=== PATIENT | male | born 1970 | race Caucasian/White ===

== ENCOUNTER 2016-12-17 15:38 | Inpatient (IN) | payer BC ==
--- NOTE | ~2016-12-17 | HP ---
Unit #: [id number] #: [id number] Patient: ANNE VIZCARRA [id number] [place] [address] [id number] MR#: [id number] NAME: ANNE VIZCARRA ROOM: 13 Age: 46 Sex: M Admission Date: 12/17/2016 : 1970 Attending Physician: Alfred Hargrove M.D. Admitting Physician: Alfred Hargrove M.D. Primary Care Physician: Primary Care Physician No HISTORY AND PHYSICAL Anne is a 46 year old who was admitted and discharged within the first 24 hours. He was not seen for an H and P. Dictated by... Mary Lou Lopez P.A.-C. for Shahla Acosta/wendy TD: 12/18/2016 21:03 JOB #: [id number] HISTORY AND PHYSICAL Page 1 of 1 X Mary Lou Lopez X HISTORY AND PHYSICAL
--- NOTE | ~2016-12-17 | PA ---
Unit #: [id number] #: [id number] Patient: ANNE VIZCARRA [id number] [place] [address] [id number] MR#: [id number] NAME: ANNE VIZCARRA ROOM: P113 Age: 46 Sex: M Admission Date: 12/17/2016 : 1970 Date of Assessment: 12/18/2016 Attending Physician: Alfred Hargrove M.D. Admitting Physician: Alfred Hargrove M.D. Primary Care Physician: Primary Care Physician No PSYCHIATRIC ASSESSMENT DATE OF SERVICE 12/18/2016. LOCATION Our [address], room [address]130, bed #1. INFORMANTS The patient and chart seem as they both seem reliable. CHIEF COMPLAINT "I'm not sure why I'm here." HISTORY OF PRESENT ILLNESS This is a 46-year-old white male, who was admitted to the admission center here for issues with depression and suicidal thoughts. On admission, the patient was somewhat irritable and reports he has had longstanding issues with depression both proceeding and after the of his 2 years ago. Apparently, he was in counseling for some period of time as well as but was never compliant with care. The patient came in yesterday reportedly trying to find "quicker way to therapy" and had talked about having chronic on and off suicidal ideation, but denied ever actually having it then or having any plan. The patient "feels that he was lied to" by the admissions personnel. The patient and I discussed possibility of medications and aftercare which he was interested, but then decided he wanted to leave and while the patient would benefit from being it is kept in the hospital for further care, he technically does not meet the criteria for involuntary hold as he is not actually suicidal, has support through his family his sons in particular and his job. The patient encouraged to be more thorough in his approached aftercare and was allowed to be discharged. PAST PSYCHIATRIC HISTORY No history of admissions. Other issues as noted above. No history of actual suicide attempts, plans, and/or intent. No history of HI or psychosis. No overt issues with chemical dependency. The patient had been on Wellbutrin from [facility] on a limited basis with some positive benefit and some negative side effects. FAMILY HISTORY Noncontributory. SOCIAL HISTORY Unit #: [id number] #: [id number] Patient: ANNE VIZCARRA The patient is , gainfully employed, support through family, well educated. MEDICAL HISTORY History of hypertension. MEDICATION HISTORY The patient is on Micardis and Oretic. ALLERGIES Include penicillin. SUBSTANCE USE HISTORY Noncontributory. MENTAL STATUS EXAMINATION General appearance; he is a well groomed white male, appears stated age. Moderate eye contact. Speech was clear and coherent. Mood was irritable with a constricted affect. Thought process and content were fairly organized and linear. No overt evidence of psychosis. The patient denied any active SI or HI. The patient . The patient's memory was grossly intact. Associations were normal. Cognitive function was at baseline. Alert and oriented x4. Insight and judgment were moderate. ASSETS AND LIABILITIES Assets include support through family, gainfully employed, well educated. Liabilities include failure to comply with long-term care. ADMITTING DIAGNOSES 1. Major depressive disorder, recurrent, moderate. 2. Hypertension. PSYCHIATRIC PLAN While the patient will most likely benefit from starting medication here since he is asking to leave medications at this point, and refer him to outpatient programming to the [facility] as well as other community resources should he choose to follow up with those. Treatment goal as noted. Discharge planning as noted. ESTIMATED LENGTH OF STAY 2 days. Dictated by... Alfred Hargrove M.D. JUNIOR/ken TD: 12/19/2016 03:18 JOB #: [id number] Unit #: [id number] #: [id number] Patient: ANNE VIZCARRA PSYCHIATRIC ASSESSMENT Page 1 of 1 X Alfred Hargrove MD X PSYCHIATRIC ASSESSMENT
--- NOTE | ~2016-12-17 | DS ---
Unit #: [id number] #: [id number] Patient: ANNE VIZCARRA [id number] [place] [address] [id number] MR#: [id number] NAME: ANNE VIZCARRA ROOM: [facility] Age: 46 Sex: M Admission Date: 12/17/2016 : 1970 Discharge Date: 12/18/2016 Attending Physician: Alfred Hargrove M.D. Primary Care Physician: Primary Care Physician No DISCHARGE SUMMARY REASON FOR ADMISSION Depression. DIAGNOSTIC STUDIES Pertinent laboratory data, CMP normal well within normal parameters, TSH normal at 5.44, free T4 normal at 0.94. CBC well within normal parameters, no other tests available at this time. HOSPITAL COURSE The patient was admitted for safety and stabilization for reported depression with suicidal ideation. Upon interview the next day, it was determined that the patient has chronic depression with failure to comply with outpatient care. He had actually been out of care for several months if not several years altogether. He denied any active SI. He reports that he does have chronic intermittent SI but no desire, plan, or history of actions and he denied ever having any actual thoughts of hurting himself this time. The patient seems somewhat irritable. He was here in the hospital, he felt that the admissions personnel lied to him about this and he was asking to leave. We discussed the pros and cons of staying in the hospital for treatment as well as the need for trying alternate medications for which he seems disinterested. He was; however, interested in aftercare referral if at all possible as he thought he was coming here to "get a faster route into therapy" even though he has been in counseling before and was not compliant with it. It was unclear what the patient's ultimate goal was but despite his irritability at least he was calm and appropriate for the interview process and since there was no active SI did not feel the patient was appropriate to be maintained on an involuntary basis, and was allowed to be discharged. DISCHARGE DIAGNOSES Nine[place] I Major depressive disorder, recurrent, moderate. Nine[place] II Nineveh III Hypertension. Nineveh IV Nineveh V DISCHARGE INSTRUCTIONS The patient is to be discharged home with followup care through psych IOP and community resources. DISCHARGE MEDICATIONS Included his home doses of Micardis and Oretic 40 mg and 12.5 mg Unit #: [id number] #: [id number] Patient: ANNE VIZCARRA respectively for hypertension. CONDITION AT DISCHARGE Unchanged. PROGNOSIS Guarded given history of failure to comply with treatment. DIET AND ACTIVITY Diet is heart healthy. Activity is as tolerated with compliance encouraged. Dictated by... Shahla Chatterjee/daly TD: 12/18/2016 12:09 JOB #: [id number] DISCHARGE SUMMARY Page 1 of 1 X Alfred Hargrove MD X DISCHARGE SUMMARY
[2016-12-18 09:36] LABS: BASOPHIL% 0.5 % (0-2.5); EOSINOPHIL# 0.2 X10e3 (0-0.7); EOSINOPHIL% 3.1 % (0.0-7.0); HEMATOCRIT 45.6 % (38.0-50.0); HEMOGLOBIN 15.5 gm/dL (13.0-16.0); LYMPHOCYTE# 1.5 X10e3 (1.0-3.5); LYMPHOCYTE% 30.9 % (17.0-45.0); MEAN CELL VOLUME 83.7 FL (83-96); MEAN CORPUSCULAR HEMOGLOBIN 28.4 PG (28-34); MEAN PLATELET VOLUME 7.9 FL (6.5-11.5); MONOCYTE# 0.4 X10e3 (0-1.0); MONOCYTE% 8.8 % (3.0-12.0); NEUTROPHIL# 2.8 X10e3 (1.5-7.1); NEUTROPHIL% 56.7 % (40-75); PLATELET COUNT 215 X10e3 (140-420); RED BLOOD COUNT 5.45 X10e (3.90-5.60); RED CELL DISTRIBUTION WIDTH 13.1 % (11.0-15.5)
[2016-12-18 09:45] LABS: DIFF IND NO
[2016-12-18 09:52] LABS: THYROID STIMULATING HORMONE 5.44 uIU/ml (0.34-5.60)
[2016-12-18 09:53] LABS: ALBUMIN SERUM 4.1 g/dL (3.5-5.0); BILIRUBIN,TOTAL 0.9 mg/dL (0.2-2.0); CALCIUM SERUM 9.2 mg/dL (8.4-10.2); GLOM FILT RATE Estimated 88.6 mL/min (>60); POTASSIUM 4.3 mmol/L (3.5-5.1)
[2016-12-18 10:01] LABS: FREE THYROXIN (T4) 0.94 ng/dL (0.58-1.64)
== END 2016-12-18 11:47 | disposition home or self-care (01) | DRG 885 ==
LOC: P1S 18:08
PROVIDERS: Psychiatry & Neurology Psychiatry
DX: F33.1 Major depressive disorder, recurrent, moderate (principal); I10 Essential (primary) hypertension; Z88.0 Allergy status to penicillin
CPT/HCPCS: 80053; 84439; 84443; 85025